=== PATIENT | male | born 1970 | race Caucasian/White ===

== ENCOUNTER 2022-07-10 11:51 | Outpatient (CLI) | payer MEDICAID, SELFPAY ==
[2022-07-10 20:07] LABS: Basophils Percent Auto 0.5 % (0.2-1.2); Eosinophils Absolute Auto 0.2 K/mm3 (0-0.3); Eosinophils Percent Auto 1.9 % (0-4.4); Hematocrit 46.1 % (42.0-52.0); Hemoglobin 15.9 g/dL (14.0-18.0); Immature Granulocyte Absolute 0.03 K/mm3 (0.00-0.031); Immature Granulocyte Percent A 0.4 % (0-0.5); Lymphocytes Absolute Auto 3.29 K/mm3 (0.9-3.2); Lymphocytes Percent Auto 42.3 % (18.3-44.2); Mean Corpuscular HGB Conc 34.5 g/dl (32-36); Mean Corpuscular Hemoglobin 31.6 pg (26-34); Mean Corpuscular Volume 91.7 fl (80-100); Mean Platelet Volume 9.3 fl (7.4-10.4); Monocytes Absolute Auto 0.5 K/mm3 (0.1-0.6); Monocytes Percent Auto 6.3 % (2.6-8.5); Neutrophils Absolute Auto 3.8 K/mm3 (1.3-6.7); Neutrophils Percent Auto 48.6 % (45.5-73.1); Platelet Count Result 283 k/mm3 (150-375); Red Blood Count 5.03 M/mm3 (4.6-6.20); White Blood Count 7.8 K/mm3 (4.5-10.0)
[2022-07-10 20:08] LABS: Alanine Aminotransferase 68 U/L (6-50); Albumin Level 4.7 g/dL (3.5-5.1); Alkaline Phosphatase 119 U/L (38-126); Anion Gap 7 mmol/L (8-16); Aspartate Amino Transferase 72 U/L (17-59); Bilirubin,Total 0.6 mg/dL (0.2-1.3); Blood Urea Nitrogen 11 mg/dL (9-20); Calcium 9.4 mg/dL (8.4-10.2); Carbon Dioxide 29 mmol/L (22-30); Chloride 101 mmol/L (98-107); Cholesterol 223 mg/dL (0-200); Estimated Glomerular Filt Rate > 60; Glucose 99 mg/dL (65-110); HDL Direct 39 mg/dL; Potassium 4.1 mmol/L (3.4-5.0); Sodium 137 mmol/L (137-145); Triglycerides 198 mg/dL (<150); Uric Acid 6.8 mg/dL (3.5-8.5)
[2022-07-10 20:19] LABS: LDL Cholesterol Direct 140 mg/dL
[2022-07-10 20:38] LABS: Hemoglobin A1C 5.2 % (<5.7)
[2022-07-17 12:28] LABS: Testosterone Total 377 ng/dL (250-1100)
== END 2022-07-10 11:52 | disposition home or self-care (01) ==
LOC: ANHGOSHLAB 11:53
PROVIDERS: PCP Family Medicine; Visit Provider Family Medicine
DX: E66.9 Obesity, unspecified (principal); F64.0 Transsexualism; G47.33 Obstructive sleep apnea (adult) (pediatric); I10 Essential (primary) hypertension; K76.0 Fatty (change of) liver, not elsewhere classified; Z79.899 Other long term (current) drug therapy; Z99.89 Dependence on other enabling machines and devices
CPT/HCPCS: 36415; 80053; 80061; 83036; 84403; 84443; 84550; 85025

== ENCOUNTER 2022-07-25 00:40 | Day surgery (SDC) | payer MEDICAID, SELFPAY ==
[2022-07-17 12:00] VITALS: BMI 40.7
--- NOTE | 2022-07-24 12:26 | PM.HPGS ---
History of Present Illness History of Present Illness Consent: Risks, benefits, and alternatives have been discussed and questions answered. Patient agrees to proceed with procedure. Chief complaint: neoplasm screening Narrative: Philippe Cameron is a 51 year old male Referred for colon cancer screening. There is a family history of polyps. Review of Systems Review of Systems: All systems reviewed & are unremarkable except as noted in HPI and below PMFSH Past Medical History Medical History Anxiety Nnwqcx-ac-[id number] transgender person Surgical History Surgical History S/P tonsillectomy Status post cholecystectomy (03/01/20) Family History Family History Mother Colon polyp Other Family history of cardiovascular disease Family history of hypercholesterolemia Family history of malignant neoplasm Family history of malignant neoplasm of breast Family history of mental disorder Hypertension Social History Social History Smoking packs per day: 1 Smoking cigarettes per day: 20.0 Years smoked: 25 Smoking pack-years: 25.00 Smoking status: Former smoker Tobacco type: cigarettes Second hand tobacco smoke exposure: No Smoking end date: 03/12/19 Alcohol intake: current Drinks per week: 10 Alcohol use details: rarely Substance use: current Substance use type: marijuana Other substance usage details: Gummies and smokes Last use: 07/16/2022 Lack of Transportation: No Lack of Food: Never True Current Housing: I Have Housing Concerned About Future Housing: No Difficulty Paying Gas/Electric Bills: No Difficulty Paying for Meds: No Currently Unemployed: No Education: Associate Degree Difficulty w/ Childcare or Family Care: No Living arrangements: alone Gender identity (if verbalized by the patient): Transgender Male Meds Home Medications and Allergies Home Medications Medication Instructions Recorded Confirmed Type telmisartan 40 mg tablet See Rx Instructions .Route 04/29/22 07/17/22 Rx .COMPLEX #90 tabs fluoxetine 20 mg capsule 20 mg PO DAILY #90 caps 07/10/22 07/17/22 Rx testosterone cypionate 200 mg/mL 200 mg subcut WEEKLY #100 mL 07/10/22 07/17/22 Rx intramuscular oil cholecalciferol (vitamin D3) 125 125 mcg PO BID 07/17/22 07/17/22 History mcg (5,000 unit) tablet (Vitamin D3) fluticasone furoate 200 1 inh inhalation DAILY PRN 07/17/22 07/17/22 History mcg-vilanterol 25 mcg/dose Shortness Of Breath inhalation powder (Breo Ellipta) [id number]-fish oil 120 1 cap PO DAILY 07/17/22 07/17/22 History mg-180 mg-60 mg-1,200 mg capsule, DR (Fish Oil) Allergies Allergy/AdvReac Type Severity Reaction Status Date / Time venom-wasp Allergy Anaphylactic Verified 07/25/22 06:20 Shock escitalopram AdvReac Severe severe Verified 07/25/22 06:20 nausea venlafaxine [From Effexor] AdvReac Severe severe Verified 07/25/22 06:20 nausea Exam Const: General: alert Orientation/consciousness: patient oriented x3 Resp: Auscultation: clear to auscultation bilaterally Cardio: Rhythm: regular rhythm GI: GI Palp: Yes Soft to palpation and No Tenderness to palpation present (GI) Neuro: General: patient oriented x3 Assessment and Plan Assessment and plan (1) Colon cancer screening: Code(s): Z12.11 - Encounter for screening for malignant neoplasm of colon Status: Acute Assessment and Plan: Colonoscopy with possible biopsy or polypectomy or cautery or injection of substances.
[2022-07-25 06:21] VITALS: BP 143/100; PULSE 80; RESP 20; TEMP 35.5; O2SAT 99
[2022-07-25] MEDS: LACTATED RINGERS 1,000 ML 150 ML IV CONT (06:37)
--- NOTE | 2022-07-25 07:15 | WPDANESEPPF ---
Anes - Initial Pre Proc Eval Procedure: Operation Date: 07/25/22 07:30 Proposed Procedures p Screening Colonoscopy - Yann Vuong MD Date/Time: 07/25/22 07:15 Surgeon: Yann Vuong MD Pre Op Diagnosis: neoplasm screening Patient Data Age: 51 Gender: M Height: 1.7 m Weight: 117.9 kg Last Vital Signs Temp 95.9 F L 07/25/22 06:21 Pulse 80 07/25/22 06:21 Resp 20 07/25/22 06:21 BP 143/100 H 07/25/22 06:21 Pulse Ox 99 07/25/22 06:21 O2 Del Method Room Air 07/25/22 06:21 Allergies Allergy/AdvReac Type Severity Reaction Status Date / Time venom-wasp Allergy Anaphylactic Verified 07/25/22 06:20 Shock escitalopram AdvReac Severe severe Verified 07/25/22 06:20 nausea venlafaxine [From Effexor] AdvReac Severe severe Verified 07/25/22 06:20 nausea Home Medications Medication Instructions Recorded Confirmed Type telmisartan 40 mg tablet See Rx Instructions .Route 04/29/22 07/17/22 Rx .COMPLEX #90 tabs fluoxetine 20 mg capsule 20 mg PO DAILY #90 caps 07/10/22 07/17/22 Rx testosterone cypionate 200 mg/mL 200 mg subcut WEEKLY #100 mL 07/10/22 07/17/22 Rx intramuscular oil cholecalciferol (vitamin D3) 125 125 mcg PO BID 07/17/22 07/17/22 History mcg (5,000 unit) tablet (Vitamin D3) fluticasone furoate 200 1 inh inhalation DAILY PRN 07/17/22 07/17/22 History mcg-vilanterol 25 mcg/dose Shortness Of Breath inhalation powder (Breo Ellipta) [id number]-fish oil 120 1 cap PO DAILY 07/17/22 07/17/22 History mg-180 mg-60 mg-1,[address] (Fish Oil) Patient hx anesthesia problems: none Family hx anesthesia problems: none Results Review: All pre-operative results and documents have been reviewed as part of the pre-operative evaluation. [facility] Past Medical History Medical History Anxiety Lnkypq-gc-watc transgender person Surgical History Surgical History S/P tonsillectomy Status post cholecystectomy (03/01/20) Family History Family History Mother Colon polyp Other Family history of cardiovascular disease Family history of hypercholesterolemia Family history of malignant neoplasm Family history of malignant neoplasm of breast Family history of mental disorder Hypertension Social History Social History Smoking packs per day: 1 Smoking cigarettes per day: 20.0 Years smoked: 25 Smoking pack-years: 25.00 Smoking status: Former smoker Tobacco type: cigarettes Second hand tobacco smoke exposure: No Smoking end date: 03/12/19 Alcohol intake: current Drinks per week: 10 Alcohol use details: rarely Substance use: current Substance use type: marijuana Other substance usage details: Gummies and smokes Last use: 07/16/2022 Lack of Transportation: No Lack of Food: Never True Current Housing: I Have Housing Concerned About Future Housing: No Difficulty Paying Gas/Electric Bills: No Difficulty Paying for Meds: No Currently Unemployed: No Education: Associate Degree Difficulty w/ Childcare or Family Care: No Living arrangements: alone Gender identity (if verbalized by the patient): Transgender Male Anes - Eval Final PreProcedure Day of Procedure 07/25/22 07:15 Patient weight: morbidly obese Heart: regular rate and rhythm Lungs: clear to auscultation Airway: Mallampati scale class II Neurological: alert and oriented Last oral intake: >/= 8 hours ASA classification: III Emergent: no Anesthetic plan: proceed Anesthesia type and monitoring: general GIVS and standard monitoring Results Review: All pre-operative results and documents have been reviewed as part of the pre-operative evaluation. Informed Consent: The patient's anesthetic plan and its attendant risks and benefits were discussed with the pat
[2022-07-25 07:50] VITALS: BP 134/71; PULSE 80; RESP 20; O2SAT 98
[2022-07-25 08:00] VITALS: BP 109/81; PULSE 79; RESP 18; O2SAT 99
[2022-07-25 08:10] VITALS: BP 124/78; PULSE 75; RESP 18; O2SAT 99
== END 2022-07-25 08:20 | disposition home or self-care (01) ==
PROVIDERS: PCP Family Medicine; Visit Provider Internal Medicine Gastroenterology
PROC: 0DJD8ZZ Inspection of Lower Intestinal Tract, Via Natural or Artificial Opening Endoscopic (ICD-10-PCS; CPT 45378; principal; 2022-07-25 07:30)
DX: Z12.11 Encounter for screening for malignant neoplasm of colon (principal); K64.8 Other hemorrhoids; F41.9 Anxiety disorder, unspecified; Z87.891 Personal history of nicotine dependence; F12.90 Cannabis use, unspecified, uncomplicated; E66.01 Morbid (severe) obesity due to excess calories; Z68.41 Body mass index [BMI] 40.0-44.9, adult
CPT/HCPCS: 45378; J2704; J7120

== ENCOUNTER 2025-03-08 14:12 | Emergency (ER) | payer OTHER, SELFPAY ==
--- NOTE | 2025-03-08 14:14 | ED.GENADULT ---
HPI - General Adult General Chief complaint: Recheck/Abnormal Lab/Rx Stated complaint: NEEDS MEDICINE REFILL Source: patient and RN notes reviewed Mode of arrival: ambulatory Limitations: no limitations History of Present Illness HPI narrative: Patient is a 54-year-old male who presents to the [facility] with request for medication refill. Patient states that he is currently out of his Irbesartan 75 mg, which he has taken daily for years. Patient states that he is in the process of establishing care with a new primary care physician, so he has been unable to get a refill. Patient states he has had a hard time finding a PCP that is accepting of his transgender status. Related Data Home Medications ?Medication ?Instructions ?Recorded ?Confirmed ?Last Taken ?Type cholecalciferol (vitamin D3) 125 125 mcg PO BID 07/17/22 07/17/22 Unknown History mcg (5,000 unit) tablet (Vitamin D3) fluticasone furoate 200 1 inh inhalation DAILY PRN 07/17/22 07/17/22 Unknown History mcg-vilanterol 25 mcg/dose Shortness Of Breath inhalation powder (Breo Ellipta) [id number]-epa-fish oil 120 1 cap PO DAILY 07/17/22 07/17/22 Unknown History mg-180 mg-60 mg-1,200 mg capsuleDR (Fish Oil) Allergies Allergy/AdvReac Type Severity Reaction Status Date / Time venom-wasp Allergy Anaphylactic Verified 03/08/25 14:25 Shock escitalopram AdvReac Severe severe Verified 03/08/25 14:25 nausea venlafaxine (From Effexor) AdvReac Severe severe Verified 03/08/25 14:25 nausea Review of Systems Review of Systems: CONSTITUTIONAL: Denies fever, chills, or sweats. EYES: Denies visual changes, redness, or discharge. ENT: Denies otalgia and sore throat CARDIOVASCULAR: Denies chest pain, palpitations, or edema. RESPIRATORY: Denies cough or dyspnea. GASTROINTESTINAL: Denies abdominal pain, nausea, vomiting, or diarrhea. GENITOURINARY: Denies dysuria or hematuria. SKIN: Denies rash or itching. MUSCULOSKELETAL: Denies back pain, joint pain, or myalgia. NEUROLOGIC: Denies headache, numbness, or weakness. Pertinent positives per HPI. PMFSH Past Medical History Medical History Anxiety [id number]-[id number]-yadn transgender person Surgical History Surgical History Status post cholecystectomy (03/01/20) S/P tonsillectomy Family History Family History Mother Colon polyp Other Family history of cardiovascular disease Family history of hypercholesterolemia Family history of malignant neoplasm Family history of malignant neoplasm of breast Family history of mental disorder Hypertension Social History Social History Smoking packs per day: 1 Smoking cigarettes per day: 20.0 Years smoked: 25 Smoking pack-years: 25.00 Smoking status: Former smoker Tobacco type: cigarettes Second hand tobacco smoke exposure: No Smoking end date: 03/12/19 Alcohol intake: current Drinks per week: 10 Alcohol use details: rarely Substance use: current Substance use type: marijuana Other substance usage details: Gummies and smokes Last use: 07/16/2022 Lack of Transportation: No Lack of Food: Never True Current Housing: I Have Housing Concerned About Future Housing: No Difficulty Paying Gas/Electric Bills: No Difficulty Paying for Meds: No Currently Unemployed: No Education: Associate Degree Difficulty w/ Childcare or Family Care: No Living arrangements: alone Gender identity (if verbalized by the patient): Transgender Male Comments At the time of my signature, I reviewed and agree with the nursing past medical, surgical, social, and family history. There is no relevant family history pertinent to the patient complaint. Exam Narrative: GENERAL: This is a well-nourished, well-developed patient, in no apparent distress. HEAD: normocephalic, atraumatic. EYES: PERRL. Sclera clear/white. Vision is grossly intact. EARS: External ears normal, auditory canals clear and without drainage, TMs normal without perforation. Hearing grossly intact. NOSE: External nose normal with no obvious nasal discharge, nares without redness, no rhinorrhea. THROAT: Mucous membranes moist, posterior pharynx clear. NECK: Neck supple, non-tender without lymphadenopathy, masses or thyromegaly. CARDIOVASCULAR: Regular rate and rhythm without murmurs, gallops, or rubs. RESPIRATORY: Clear to auscultation. Breath sounds equal bilaterally. No wheezes, rales, or rhonchi. GASTROINTESTINAL: Abdomen soft, non-tender, nondistended. Bowel sounds are active. No hepato-splenomegaly, or palpable masses. No guarding. SKIN: warm, intact with no suspicious lesions or rash, good texture and turgor. NEURO: awake, alert, and oriented to person, place and time. There were no obvious focal neurologic abnormalities. EXTREMITIES: No clubbing, cyanosis, or edema. No joint tenderness, effusion, or edema noted. BACK: Nontender without deformity or crepitance. No flank tenderness. Course Course Level of Care: Express Care Visit Vital Signs Vital signs: Reviewed Medical Decision Making MDM Narrative Medical decision making narrative: Patient advised to establish care with PCP. Differential Diagnosis Differential Diagnosis: encounter for medication refill, well adult exam, hypertension Critical Care Time Critical Care Time Critical Care Time: No Discharge Plan Discharge Clinical Impression: Encounter for medication refill Patient Disposition: Home Condition: Stable Instructions: Normal Exam (ED) Additional Instructions: Establish care with primary care physician as soon as possible. Patient Language: [place] Prescriptions: New irbesartan 75 mg tablet 75 mg PO DAILY Qty: 90 0RF No Action fluoxetine 20 mg capsule 20 mg PO DAILY Qty: 90 3RF azithromycin [Zithromax Z-Helder] 250 mg tablet See Rx Instructions PO .COMPLEX Qty: 6 0RF Rx Instructions: take 500 mg today (day 1), then 250 mg for 4 days (days 2-5) PO albuterol sulfate [ProAir HFA] 90 mcg/actuation HFA aerosol inhaler 2 puff inhalation Q4H PRN (Reason: bronchospasm) Qty: 8.5 1RF cholecalciferol (vitamin D3) [Vitamin D3] 125 mcg (5,000 unit) Tablet 125 mcg PO BID Fish Oil 120 mg-180 mg- 60 mg-1,200 mg Capsule,Delayed Release(Dr/Ec) 1 cap PO DAILY fluticasone furoate-vilanterol [Breo Ellipta] 200-25 mcg/dose blister with device 1 inh inhalation DAILY PRN (Reason: Shortness Of Breath) Rx Instructions: rinse mouth after use cholestyramine (with sugar) 4 gram powder in packet 4 g PO DAILY Qty: 30 3RF Rx Instructions: mix in 2-3 oz liquid and take at bedtime on empty stomach testosterone cypionate 200 mg/mL oil 200 mg subcut WEEKLY Qty: 100 1RF irbesartan 75 mg tablet 75 mg PO DAILY Qty: 90 0RF Follow-up/Referrals: UNKNOWN,DOCTOR [Non-Staff] Time of Disposition: 14:31
[2025-03-08 14:30] VITALS: BP 164/85; PULSE 100; RESP 16; TEMP 37; O2SAT 100
== END 2025-03-08 14:35 | disposition home or self-care (01) ==
PROVIDERS: Emergency Provider Nurse Practitioner
DX: Z76.0 Encounter for issue of repeat prescription (principal); F64.0 Transsexualism; F41.9 Anxiety disorder, unspecified; Z87.891 Personal history of nicotine dependence
CPT/HCPCS: 99211; G0463